=== PATIENT | female | born 1940 | race Caucasian/White ===

== ENCOUNTER → 2021-04-06 14:50 | Outpatient (CLI) | payer MEDICARE, OTHER, SELFPAY ==
--- NOTE | ~2021-04-06 | XR_ITS ---
XR shoulder LT min 2V DATE: 04/06/2021 15:27 INDICATION: Left shoulder joint pain TECHNIQUE: 4 views COMPARISON: None FINDINGS: Recent comminuted fracture of the midshaft of the left clavicle is again noted. No other fracture or dislocation is evident. Normal alignment at the acromioclavicular and glenohumeral joints. There is diffuse osteopenia. IMPRESSION: Comminuted fracture of midshaft of left clavicle Reviewed, dictated and finalized at location B. EILLANCE INSPECTOR
--- NOTE | ~2021-04-06 | XR_ITS ---
XR clavicle LT DATE: 04/06/2021 15:27 INDICATION: Left shoulder pain TECHNIQUE: AP and angled AP views of left clavicle COMPARISON: None FINDINGS: There is a comminuted inferiorly displaced mildly overriding fracture of the midshaft of th e left clavicle. There is diffuse osteopenia. Alignment appears intact at the sternoclavicular and acromioclavicular joints and glenohumeral joint. IMPRESSION: Comminuted inferiorly displaced mildly overriding fracture of left mid clavicular shaft Reviewed, dictated and finalized at location B. ARY DIRECTOR
== END ==
PROVIDERS: PCP Nurse Practitioner Family; Visit Provider Nurse Practitioner Family
DX: S42.022A Displaced fracture of shaft of left clavicle, initial encounter for closed fracture (principal); X58.XXXA Exposure to other specified factors, initial encounter
CPT/HCPCS: 73000; 73030

== ENCOUNTER 2021-09-21 15:19 | Emergency (ER) | payer MEDICARE, OTHER, SELFPAY ==
--- NOTE | ~2021-09-21 | XR_ITS ---
XR finger 2nd RT min 2V 09/21/2021 16:09 Indication: Right second finger pain after trauma Procedure: 4 views right second finger Comparison: No prior studies for comparison. Findings: There is an oblique nondisplaced fracture of the second middle phalanx without intra-articu lar extension. 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 Osteopenia. No other fractur e. Impression: 1: Oblique nondisplaced extra-articular fracture right second middle phalanx. Reviewed, dictated and finalized at location B. Impression: 1: Oblique nondisplaced extra-articular fracture right second middle phalanx.
[2021-09-21 15:36] VITALS: BP 154/69; PULSE 100; RESP 18; TEMP 37.4; O2SAT 99
--- NOTE | 2021-09-21 15:55 | ED.WOUNDLAC ---
HPI - Wound/Laceration General Chief Complaint: Wound/Laceration Stated Complaint: rt index finger injury,cough Time Seen by Provider: 09/21/21 15:50 Source: patient, RN notes reviewed and old records reviewed Mode of arrival: ambulatory Limitations: no limitations History of Present Illness HPI narrative: 81 year old female who presents to [facility] care with complaints of injury to her right index finger which occurred on the 25 of August when she smashed her finger in the car door. She presents today stating she wants an antibiotic to see if swelling will go down in her finger. Patient does admit to having some open abrasions to the sides of her right index finger bilaterally which have healed.Patient reports that swelling continues in her finger but patient is able to move finger on own power and bend at joint regions. Patient also reports that she has had a nonproductive cough and has been taking Robitussin. Patient states also she has been taking Zyrtec for nasal congestion and drainage. Related Data Home Medications Medication Instructions Recorded Confirmed levothyroxine 09/21/21 Allergies Allergy/AdvReac Type Severity Reaction Status Date / Time ciprofloxacin [From Cipro] Allergy Unknown Verified 09/21/21 15:44 Penicillins Allergy Unknown Verified 09/21/21 15:44 Sulfa (Sulfonamide Allergy Unknown Verified 09/21/21 15:44 Antibiotics) Review of Systems Review of Systems: CONSTITUTIONAL: Denies fever, chills, or sweats. EYES: Denies visual changes, redness, or discharge. ENT: Positive for rhinorrhea, congestion,no sore throat, or otalgia. CARDIOVASCULAR: Denies chest pain, palpitations, or edema. RESPIRATORY: Positive for cough denies dyspnea. GASTROINTESTINAL: Denies abdominal pain, nausea, vomiting, or diarrhea. GENITOURINARY: Denies dysuria or hematuria. SKIN: Denies rash or itching. MUSCULOSKELETAL: Denies back pain, joint pain, or myalgia,positive for swelling to distal right index finger NEUROLOGIC: Denies headache, numbness, or weakness. PSYCHIATRIC: Denies anxiety or depression. [facility] Past Medical History Medical History (Updated 09/22/21 @ 10:17 by Liliana Samaniego NP) Hypothyroidism Social History Social History (Updated 09/22/21 @ 10:16 by Liliana Samaniego NP) Smoking status: Never smoker Alcohol intake: never Substance use: never Occupation/Education: retired Gender identity (if verbalized by the patient): Female Comments At time of signature, agree with nursing past medical, surgical, social and family history. There is no relevant family history pertinent to the presenting complaint Exam Narrative: GENERAL: Well-appearing, well-nourished, and in no acute distress. HEAD: Normocephalic, atraumatic. EYES: PERRLA and EOMI. ENT: Nares red with clear rhinorrhea no epistaxis. Mucous membranes moist.TM's normal with good light reflex, throat pink with no lesions or exudates, no tonsil swelling or redness. NECK: Supple. no lymphadenopathy CHEST: Clear to auscultation. No respiratory distress. SaO2 99% on room air, non productive cough HEART: Regular rate and rhythm. No murmur heard. Normal peripheral pulses. ABDOMEN: Soft, nontender, nondistended, normal active bowel sounds. EXTREMITIES: Normal range of motion. No edema.Exception noted to right index finger which is swollen, with full mobility in joints noted minimal tenderness to region between mid and distal joint region, no open lesions noted reports abrasions on side of finger have healed. Sensation and circulation is intact. SKIN: Warm, dry, no rash. NEURO: No focal deficits. Alert and oriented x3. Course Course Level of Care: Express Care Visit Vital Signs Vital signs: Vital Signs Temperature 37.4 C 09/21/21 15:36 Pulse Rate 100 09/21/21 15:36 Respiratory Rate 18 09/21/21 15:36 Blood Pressure 154/69 H 09/21/21 15:36 Pulse Oximetry 99 09/21/21 15:36 Oxygen Delivery Room Air 09/21/21 15:36 Temp
== END 2021-09-21 17:00 | disposition home or self-care (01) ==
PROVIDERS: Emergency Provider Registered Nurse; PCP Nurse Practitioner Family
DX: S62.650A Nondisplaced fracture of middle phalanx of right index finger, initial encounter for closed fracture (principal); W23.0XXA Caught, crushed, jammed, or pinched between moving objects, initial encounter; E03.9 Hypothyroidism, unspecified
CPT/HCPCS: 29130; 73140; 99214; G0463